=== PATIENT | female | born 2000 | race Caucasian/White ===

== ENCOUNTER 2022-06-05 12:31 | Inpatient (IN) ==
--- NOTE | 2022-06-05 13:08 | XRay Report ---
XR chest 1V portable HISTORY: 22 years-old Female Chest pain, nonspecific acute chest pain COMPARISON: None TECHNIQUE: AP view the chest FINDINGS: Cardiomediastinal and hilar silhouettes are within normal limits. No pneumothorax, pleural effusion, airspace consolidation or pulmonary edema. Bilateral nipple jewelry. Bones appear normal. IMPRESSION: Normal exam. ACT 112: Negative or not required by law. The above report was generated using voice recognition software. It may contain grammatical, syntax o r spelling errors. Electronically signed by: Venkata Crane M.D. 06/05/2022 1:07 PM
--- NOTE | 2022-06-05 13:15 | Emergency Department Note ---
History of Present Illness General Chief complaint: Chest Pain Stated complaint: SEVER PAIN LEFT ARM & BREAST Time Seen by Provider: 06/05/22 13:00 History of Present Illness Provider complaint: Chest and breast pain Onset (ago): hour(s) (2.5) Location: chest and left Radiation: back Maximum Pain Intensity: 8 Current Pain Intensity: 8 Quality: + stabbing, + aching, + sharp and + dull Relieved By: + immobilization Exacerbated By: + movement Associated symptoms: + chest pain and + shortness of breath 22-year-old female presents emergency department with mother for left chest and breast pain. Patient states she woke up at 10:30 in the morning and heard she was having pain in her left chest. She states her pain was radiating into her left breast tissue and then into her back. She reports her pain is worse with inspiration and movement. She reports some mild shortness of breath. Patient is on control. No trauma. Home Medications Medication Instructions Recorded Confirmed Type mirtazapine 15 mg tablet 15 mg PO HS 06/05/22 06/05/22 History norethindrone 1.5 mg-ethinyl 1 tab PO DAILY 06/05/22 06/05/22 History estradiol 30 mcg(21)/iron 75 mg(7) tablet (Blisovi Fe 1.5/30 (28)) trazodone 50 mg tablet 50 mg PO HS 06/05/22 06/05/22 History Allergies Allergy/AdvReac Type Severity Reaction Status Date / Time adhesive Allergy Intermediate REDDENED/HI Verified 06/05/22 16:33 VES amoxicillin Allergy Intermediate Rash Verified 06/05/22 16:29 cefixime [From Suprax] Allergy Intermediate Hives Verified 06/05/22 14:07 clavulanic acid Allergy Intermediate Rash Verified 06/05/22 16:29 [From Augmentin] cefaclor [From Ceclor] Allergy Mild Hives Verified 06/05/22 16:25 cephalexin [From Keflex] Allergy Mild Hives Verified 06/05/22 16:26 Sulfa (Sulfonamide Allergy Mild Rash Verified 06/05/22 16:33 Antibiotics) Past Med/Surg History Medical History History of chicken pox Surgical History S/P tonsillectomy Family History Other Anemia Dyslipidemia Endometriosis Hypertension Denies family history of Ovarian cancer Breast cancer Colorectal cancer Uterine cancer Social History Smoking Status: Never smoker Hx Alcohol Use: No Hx Substance Use: No Preferred Language: Greenlandic Communication Ability: Effective Feels Safe at Home: Yes Physical Exam Vital Signs Vital Signs - 24 hr 06/05/22 12:37 06/05/22 13:34 06/05/22 15:46 Temperature 36.8 C 37.9 C H Temperature Source Temporal Artery Scan Oral Pulse Rate 117 H Pulse Rate [Finger] 109 H Respiratory Rate 18 16 Respiratory Effort / Characteristics Non-Labored Spontaneous Respiratory Depth Normal Blood Pressure 131/85 Blood Pressure [Right Arm] 117/75 Blood Pressure Mean 100 Blood Pressure Mean [Right Arm] 89 Blood Pressure Position Sitting Blood Pressure Position [Right Arm] Semi-fowlers Pulse Oximetry 99 97 Oxygen Delivery Method Room Air Room Air Room Air Sepsis Recent Fever Within 48 Hours No Sepsis New/Unexplained Change in Mental Status No Sepsis Action Taken by Nursing No Action Required Physical Exam GENERAL: She is oriented to person, place, and time. She appears well-developed and well-nourished. HENT: Exam performed. -Head: Normocephalic and atraumatic. -Right Ear: External ear normal. No mastoid erythema -Left Ear: External ear normal. No mastoid erythema EYES: Conjunctivae and EOM are normal.Right eye exhibits no discharge. Left eye exhibits no discharge. No scleral icterus. NECK: Normal range of motion. Neck supple. No JVD present. No tracheal deviation and normal range of motion present. CV: Tachycardic rate, regular rhythm, normal heart sounds and intact distal pulses. There is no peripheral edema. Palpable radial pulses bue. PULM/CHEST: Effort normal and breath sounds normal. No respiratory distress. No stridor. She has no wheezes. She has no rales. -Chest Wall: She exhibits tenderness to palpation of the left chest. No crepitus bilaterally. BREAST: Breast exam conducted with female nursing classer Richard at bedside. There is no erythema over the breast. There is a left nipple ring which the patient states has been present for the last 3 years. There is no blood or discharge coming from the left nipple. No palpable masses in the left breast. No fluctuant areas. Breast tissue is tender to touch. ABD: The abdomen is soft.She has no distension.There is no tenderness. There is no rebound, no guarding. MUSC/SKEL: Normal range of motion. There is tenderness to palpation of the left thoracic paraspinal muscles and trapezial muscles also. LYMPH: No cervical adenopathy. NEURO: She is alert and oriented to person, place, and time. She has normal strength. No cranial nerve deficit or sensory deficit. Coordination and gait normal. GCS eye subscore is 4. GCS verbal subscore is 5. GCS motor subscore is 6. Cerebellar tests wnl. SKIN: Skin is warm and dry. She is not diaphoretic. PSYCH: She has a normal mood and affect. Behavior is normal. Judgment and thought content normal. Course Course 1300: The patient was evaluated in room A3. A complete history and physical exam was performed Cardiac monitoring: An order was placed for continuous cardiac monitoring. The monitor shows a rate of 100 with sinus rhythm interpreted by me 1633: Patient's temperature diane to 37.9 orally. Patient remains tachycardic. Labs show leukocytosis of 20. Chest x-ray and D-dimer as well as troponin negative. Ultrasound of the breast shows a 2.1 cm x 1.3 cm x 1.4 cm nonvascular fluid collection at the 7 o'clock position concerning for an abscess. General surgery evaluate the patient. Sivan Shine came down to evaluate the patient and states they will admit to Dr. Andreia Wells. Patient will be made n.p.o. IV Tylenol IV fluids ordered for the patient. Discussed potential antibiotic choices with general surgery and they deferred to us. Discussed with pharmacy who did interview the patient and mother and stated the patient had reactions rash reactions with no airway problems in the past as a child due to recurrent strep infections. There is concern against potential anaerobic, staph, MSSA infection of the abscess so we will treat the patient with Rocephin IV, Vanco IV, and Flagyl IV. Medical Decision Making Laboratory Data Attestation: I reviewed the patient's lab results. 06/05/22 12:45 06/05/22 12:45 Lab Results 06/05/22 06/05/22 06/05/22 Range/Units 12:45 12:45 12:45 WBC 20.22 H (4.8-10.8) K/ul RBC 5.02 (4.20-5.40) M/uL Hgb 14.4 (12.0-16.0) g/dl Hct 42.5 (37.0-47.0) % MCV 84.7 (80.0-100.0) fL MCH 28.7 (25.0-34.0) pg MCHC 33.9 (32.0-36.0) g/dL RDW Std Deviation 37.8 (36.4-46.3) fL RDW Coeff of Shanice 12.5 (11.5-14.5) % Plt Count 352 (130-400) K/uL MPV 10.0 (9.4-12.4) fL Immature Gran % (Auto) 0.4 % Neut % (Auto) 89.8 % Lymph % (Auto) 5.0 % [place] % (Auto) 4.3 % Eos % (Auto) 0.2 % Baso % (Auto) 0.3 % Neut # (Auto) 18.13 H (1.40-6.50) K/uL Lymph # (Auto) 1.01 L (1.2-3.4) K/uL [place] # (Auto) 0.87 H (0.11-0.59) K/uL Eos # (Auto) 0.05 (0-0.50) K/uL Baso # (Auto) 0.07 (0-0.2) K/uL Immature Gran # (Auto) 0.09 (0.01-0.20) K/uL PT 10.5 (9.0-12.0) Seconds INR 1.0 (0.9-1.1) APTT 23.4 (21.0-31.0) Seconds PTT Ratio 0.9 D-Dimer 330 (0-500) ug/L FEU Sodium 134 L (136-145) mmol/L Potassium 4.0 (3.5-5.1) mmol/L Chloride 100 (98-107) mmol/L Carbon Dioxide 25 (21-32) mmol/L Anion Gap 9 (3-11) BUN 7 (6-23) mg/dl Creatinine 0.86 (0.6-1.2) mg/dl Est Cr Clr Drug Dosing 101.5 ml/min Est GFR ( Amer) 112.7 ml/min Est GFR (Non-Af Amer) 97.3 ml/min BUN/Creatinine Ratio 8.1 L (10-20) Glucose 99 (70-99(Fasting)) mg/dl Calcium 9.4 (8.6-10.3) mg/dl Total Bilirubin 0.6 (0.2-1.0) mg/dl AST 13 (13-39) U/L ALT 10 (7-52) U/L Alkaline Phosphatase 91 (34-104) U/L Troponin I High Sens 4.4 (0-14) pg/ml Total Protein 7.5 (6.0-8.3) gm/dl Albumin 4.3 (3.4-5.0) gm/dl Globulin 3.2 (2.5-4.0) gm/dl Albumin/Globulin Ratio 1.3 (0.9-2) Imaging Data Attestation: I personally reviewed and interpreted this imaging study as follows: My Impression: Chest x-ray negative. Airway clear. No pneumothorax. No consolidation. No cardiomegaly or cephalization.. No free air under the diaphragm. No fractures of the skeletal structures. Radiologist's Impression: Chest X-Ray 06/05/22 12:41 XR chest 1V portable HISTORY: 22 years-old Female Chest pain, nonspecific acute chest pain COMPARISON: None TECHNIQUE: AP view the chest FINDINGS: Cardiomediastinal and hilar silhouettes are within normal limits. No pneumothorax, pleural effusion, airspace consolidation or pulmonary edema. Bilateral nipple jewelry. Bones appear normal. IMPRESSION: Normal exam. ACT 112: Negative or not required by law. The above report was generated using voice recognition software. It may contain grammatical, syntax or spelling errors. Electronically signed by: Venkata Crane M.D. 06/05/2022 1:07 PM Breast Ultrasound 06/05/22 14:20 ULTRASOUND OF THE LEFT BREAST CLINICAL HISTORY: Left breast pain. Clinical concern for abscess. COMPARISON STUDY: No priors. FINDINGS: Real-time grayscale and color flow sonography of the left breast is performed at the indicated site of interest. At the 7 o'clock position, there is a complex fluid collection which measures 1.4 x 1.3 x 2.1 cm. This is located 6 mm deep to the dermal surface, and there is peripheral hyperemia on color imaging. The appearance is typical for a small abscess. IMPRESSION: 1. There is a 2.1 cm complex nonvascular fluid collection at the 7 o'clock position at the site of interest. The appearance favors a small abscess. Clinical correlation will be required. 2. Note that this does not constitute a cancer screening examination. Dictated: 06/05/2022 3:06 PM Transcribed: 06/05/2022 3:16 PM Ruby [id number] ELIZABETH_Janes [id number] Electronically signed by: Bryant Quintero M.D. 06/05/2022 3:30 PM ECG Data Additional Comments: EKG #1 at 1244: Sinus tachycardia with rate of 122. NC 98 QRS [address] elevation or ST depression. EKG #2 at 1308: Sinus rhythm with a rate of 100. NC 118 QRS [address] elevation or ST depression. [facility] Narrative 1300: The patient was evaluated in room A3. A complete history and physical exam was performed Cardiac monitoring: An order was placed for continuous cardiac monitoring. The monitor shows a rate of 100 with sinus rhythm interpreted by tn 1633: Patient's temperature diane to 37.9 orally. Patient remains tachycardic. Labs show leukocytosis of 20. Chest x-ray and D-dimer as well as troponin negative. Ultrasound of the breast shows a 2.1 cm x 1.3 cm x 1.4 cm nonvascular fluid collection at the 7 o'clock position concerning for an abscess. General surgery evaluate the patient. Sivan Shine came down to evaluate the patient and states they will admit to Dr. Andreia Wells. Patient will be made n.p.o. IV Tylenol IV fluids ordered for the patient. Discussed potential antibiotic choices with general surgery and they deferred to us. Discussed with pharmacy who did interview the patient and mother and stated the patient had reactions rash reactions with no airway problems in the past as a child due to recurrent strep infections. There is concern against potential anaerobic, staph, MSSA infection of the abscess so we will treat the patient with Rocephin IV, Vanco IV, and Flagyl IV. Impression & Plan Abscess of breast Discharge Plan Visit Data Chief Complaint: Chest Pain Stated Complaint: SEVER PAIN LEFT ARM & BREAST ED Provider: Jaswant Fields Discharge Problem: Abscess of breast Patient Disposition: Admitted As Inpatient Forms Stand Alone Forms: [facility] Prescriptions Prescriptions: No Action norethindrone-e.estradiol-iron [Blisovi Fe 1.5/30 (28)] 1.5 mg-30 mcg (21)/75 mg (7) tablet 1 tab PO DAILY trazodone 50 mg tablet 50 mg PO HS mirtazapine 15 mg tablet 15 mg PO HS Referrals Referrals: Gumaro Azar PA-C [Primary Care Provider] -
[2022-06-05 13:39] LABS: D Dimer 330 ug/L FEU (0-500); Partial Thromboplastin Ratio 0.9; Partial Thromboplastin Time 23.4 Seconds (21.0-31.0); Prothrombin Time 10.5 Seconds (9.0-12.0)
[2022-06-05 13:40] LABS: Basophils # (auto) 0.07 K/uL (0-0.2); Basophils % (auto) 0.3 %; Eosinophils # (auto) 0.05 K/uL (0-0.50); Eosinophils % (auto) 0.2 %; Hematocrit (blood only) 42.5 % (37.0-47.0); Hemoglobin 14.4 g/dl (12.0-16.0); Immature Granulocytes # (auto) 0.09 K/uL (0.01-0.20); Immature Granulocytes % (auto) 0.4 %; Lymphocytes # (auto) 1.01 K/uL (1.2-3.4); Mean Corpuscular Hemoglobin 28.7 pg (25.0-34.0); Mean Corpuscular Hgb Conc 33.9 g/dL (32.0-36.0); Mean Corpuscular Volume 84.7 fL (80.0-100.0); Monocytes # (auto) 0.87 K/uL (0.11-0.59); Monocytes % (auto) 4.3 %; Neutrophils # (auto) 18.13 K/uL (1.40-6.50); Neutrophils % (auto) 89.8 %; Platelet Count 352 K/uL (130-400); RDW Coefficient of Variation 12.5 % (11.5-14.5); RDW Standard Deviation 37.8 fL (36.4-46.3); Red Blood Count 5.02 M/uL (4.20-5.40); White Blood Count 20.22 K/ul (4.8-10.8)
[2022-06-05 13:45] LABS: Albumin Level 4.3 gm/dl (3.4-5.0); Bilirubin,Total 0.6 mg/dl (0.2-1.0); Calcium 9.4 mg/dl (8.6-10.3)
[2022-06-05 13:51] LABS: Albumin Globulin Ratio 1.3 (0.9-2); BUN Creatinine Ratio 8.1 (10-20); Creatinine Clr Calc Pharmacy 101.5 ml/min; Est GFR (African American) 112.7 ml/min; Est GFR (Non-African American) 97.3 ml/min; Globulin 3.2 gm/dl (2.5-4.0); Total Protein 7.5 gm/dl (6.0-8.3)
[2022-06-05 13:56] LABS: Troponin I High Sensitivity 4.4 pg/ml (0-14)
--- NOTE | 2022-06-05 15:32 | Ultrasound Report ---
ULTRASOUND OF THE LEFT BREAST CLINICAL HISTORY: Left breast pain. Clinical concern for abscess. COMPARISON STUDY: No priors. FINDINGS: Real-time grayscale and color flow sonography of the left breast is performed at the [facility] site of interest. At the 7 o'clock position, there is a complex fluid collection which measures 1 .4 x 1.3 x 2.1 cm. This is located 6 mm deep to the dermal surface, and there is peripheral hyperemia on color imaging. The appearance is typical for a small abscess. IMPRESSION: 1. There is a 2.1 cm complex nonvascular fluid collection at the 7 o'clock position at the site of in [facility]. The appearance favors a small abscess. Clinical correlation will be required. 2. Note that this does not constitute a cancer screening examination. Dictated: 06/05/2022 3:06 PM Transcribed: 06/05/2022 3:16 PM Ruby [id number] ELIZABETH_Janes [id number] Electronically signed by: Bryant Quintero M.D. 06/05/2022 3:30 PM
[2022-06-05] MEDS ORDERED: SODIUM CHLORIDE 0.9% 1000ML 2,000 ML IV ONE (16:18)
[2022-06-05] MEDS ORDERED: cefTRIAXone SODIUM 2,000 MG/70 ML BAG IV STA (16:31)
[2022-06-05] MEDS ORDERED: VANCOMYCIN CONSULT ACTIVE PRN (16:31)
[2022-06-05] MEDS ORDERED: VANCOMYCIN HCL 1,500 MG in SODIUM CHLORIDE 0.9% 500 ML IV ONE (16:31)
[2022-06-05] MEDS ORDERED: metroNIDAZOLE 500 MG/100 ML BAG IV STA (16:31)
--- NOTE | 2022-06-05 16:43 | History & Physical Report ---
I discussed this case with the surgical PA. Plan was to have the patient admitted to start IV antibiotics Follow up with IR in the am to see if they would be amenable to US guided needle aspiration of this collection to obtain cultures Date of Service June 05, 2022 Assessment & Plan (1) Abscess of breast: Plan: This is a 22yF who presents to the [facility] ED with complaints of left breast pain that started this morning. She noticed her L breast was feeling tender and warm to the touch, denies any drainage. In the ER she underwent an US of the breast that revealed a 2.1 cm complex nonvascular fluid collection at the 7 o'clock position at the site of interest. The appearance favors a small abscess. She denies any history of breast feeding. Does have her nipples pierced as of 3 years ago. In the ER she is found to be slightly tachycardic to low 100s and most recent temperature was 37.9 with stable blood pressure. On examination patient is comfortable appearing and in no distress. She has a nipple piercing in place in the L breast without evidence of drainage. Circumferentially the skin surrounding the areola has areas of patchy erythema. In the 7 o'clock region there is a small mobile palpable mass likely consistent with what they are finding on US. She has tenderness to palpation in this region. Based on patient's vitals, elevation in WBC, and exam patient would benefit from admission to start a course of IV abx. Discussed with IR who does not perform any breast work at this time. May benefit from aspiration at the breast center under their imaging guidance pending progress on abx. Will follow closely. History of Present Illness Primary Care Provider: Gumaro Azar PA-C This is a 22yF who presents to the [facility] ED with complaints of left breast pain. She states the pain started around 10am today and it radiates into her back. She noticed her L breast was feeling tender and warm to the touch. She reports discomfort in her underarm region with certain movements. She denies any fevers/chills, nausea/vomiting, CP/SOB. In the ER she underwent an US of the breast that revealed a 2.1 cm complex nonvascular fluid collection at the 7 o'clock position at the site of interest. The appearance favors a small abscess. She denies any history of breast feeding. Does have her nipples pierced as of 3 years ago- no known issues with them. Denies any drainage from the breast/nipple. Never had pain or issue like this before. Offers no other complaints outside of pain of the breast. Allergies Allergy/AdvReac Type Severity Reaction Status Date / Time adhesive Allergy Intermediate REDDENED/HI Verified 06/05/22 16:33 VES amoxicillin Allergy Intermediate Rash Verified 06/05/22 16:29 cefixime [From Suprax] Allergy Intermediate Hives Verified 06/05/22 14:07 clavulanic acid Allergy Intermediate Rash Verified 06/05/22 16:29 [From Augmentin] cefaclor [From Ceclor] Allergy Mild Hives Verified 06/05/22 16:25 cephalexin [From Keflex] Allergy Mild Hives Verified 06/05/22 16:26 Sulfa (Sulfonamide Allergy Mild Rash Verified 06/05/22 16:33 Antibiotics) Home Medications Medication Instructions Recorded Confirmed Type mirtazapine 15 mg tablet 15 mg PO HS 06/05/22 06/05/22 History norethindrone 1.5 mg-ethinyl 1 tab PO DAILY 06/05/22 06/05/22 History estradiol 30 mcg(21)/iron 75 mg(7) tablet (Blisovi Fe 1.5/30 (28)) trazodone 50 mg tablet 50 mg PO HS 06/05/22 06/05/22 History Past Med/Surg History Medical History History of chicken pox Surgical History S/P tonsillectomy Family History Other Anemia Dyslipidemia Endometriosis Hypertension Denies family history of Ovarian cancer Breast cancer Colorectal cancer Uterine cancer Social History Smoking Status: Never smoker Hx Alcohol Use: No Hx Substance Use: No Preferred Language: Syriac Communication Ability: Effective Video Photographer Required: No Beliefs That Will Affect Care: None Feels Safe at Home: Yes Review of Systems Constitutional: no fever and no chills Respiratory: no dyspnea Cardiovascular: no chest pain Gastrointestinal: no abdominal pain, no nausea and no vomiting Integumentary: pain of left breast with some surrounding redness, warm and tender to touch Physical Exam Physical Exam: awake/alert, no distress Constitutional: well developed and well nourished; no acute distress Respiratory: normal respiratory effort Cardiovascular: Rate/Rhythm: regular rhythm and + tachycardic Chest (Breasts): Additional Comments: L breast with nipple piercing in place, no surrounding drainage. circumferentially the skin outside of the areola has areas of patchy erythema. In the 7 oclock region there is a small mobile palpable mass likely consistent with what they are finding on US. She has tenderness to palpation in this region Results & Data Results & Data Vital Signs (Past 12 Hours) Vital Signs Temp Pulse Pulse Resp BP BP Pulse Ox 06/05/22 15:46 37.9 C H 109 H 16 117/75 97 06/05/22 13:34 06/05/22 12:37 36.8 C 117 H 18 131/85 99 O2 Del Method 06/05/22 15:46 Room Air 06/05/22 13:34 Room Air 06/05/22 12:37 Room Air Diagnostic Findings ULTRASOUND OF THE LEFT BREAST CLINICAL HISTORY: Left breast pain. Clinical concern for abscess. COMPARISON STUDY: No priors. FINDINGS: Real-time grayscale and color flow sonography of the left breast is performed at the indicated site of interest. At the 7 o'clock position, there is a complex fluid collection which measures 1.4 x 1.3 x 2.1 cm. This is located 6 mm deep to the dermal surface, and there is peripheral hyperemia on color imaging. The appearance is typical for a small abscess. IMPRESSION: 1. There is a 2.1 cm complex nonvascular fluid collection at the 7 o'clock position at the site of interest. The appearance favors a small abscess. Clinical correlation will be required. 2. Note that this does not constitute a cancer screening examination. Dictated: 06/05/2022 3:06 PM Transcribed: 06/05/2022 3:16 PM Ruby [id number] Lisa [id number] Electronically signed by: Bryant Quintero M.D. 06/05/2022 3:30 PM PG Care Time/CCT Total # of Minutes Spent Total Time Spent with Patient: Total time spent is greater than 50% in coordination of care (as documented) at patient's floor/unit and/or counseling patient: Coding Level of Care Code 35348 INT INP/OBS CARE MIN Diagnoses Abscess of breast N61.1
[2022-06-05] MEDS ORDERED: ACETAMINOPHEN 1,000 MG/100 ML VIAL IV STA (18:27)
[2022-06-05] MEDS ORDERED: ONDANSETRON INJ 2 MG/ML 2 ML VIAL IV PRN (19:30)
[2022-06-05] MEDS ORDERED: IBUPROFEN 200 MG TAB PO PRN (19:30)
[2022-06-05] MEDS ORDERED: ACETAMINOPHEN 325 MG TAB PO PRN (19:30)
--- NOTE | 2022-06-05 19:57 | Pharmacy Report ---
Pharmacy PK ABX Note - Date of Service June 05, 2022 - Assessment and Plan Assessment 22 year old F receiving ceftriaxone/metronidazole/vancomycin for treatment of breast abscess. Leukocytosis (20). Afebrile. Ultrasound suggesting small abscess. No drainage. No cultures at present time. Plan for admission and treatment with IV antibiotics. No plan for drainage at this time. Patient does have multiple allergies to early gen cephalosporins and cefixime (3rd gen). Tolerated first dose of ceftriaxone in the ED- monitor. Plan Vancomycin * Loading dose: 1500 mg IV x 1 * Maintenance dose: 1000 mg IV every 12 hours * Regimen is predicted to achieve target AUC/CHUNG of 400-600 mg/L.hr * Random level to be ordered if continued >48 hours Pharmacy will continue to follow and will adjust dose/frequency as necessary. Thank you. Pharmacy has transitioned to AUC monitoring for vancomycin. AUC/CHUNG is the preferred PK/PD target and is associated with decreased risk of nephrotoxicity compared to traditional trough targets.
[2022-06-05] MEDS: traZODone HCL 50 MG TAB PO SCH (22:40)
[2022-06-05] MEDS: MIRTAZAPINE TAB 15 MG TAB PO SCH (22:40)
[2022-06-05] MEDS: SODIUM CHLORIDE 0.9% 1000ML 1,000 ML IV SCH (22:40)
[2022-06-06] MEDS: VANCOMYCIN HCL 1,000 MG in SODIUM CHLORIDE 0.9% 250 ML IV SCH ×2 (01:56→13:19)
[2022-06-06] MEDS: metroNIDAZOLE 500 MG/100 ML BAG IV SCH ×3 (03:28→19:03)
[2022-06-06 07:02] LABS: Basophils # (auto) 0.04 K/uL (0-0.2); Basophils % (auto) 0.3 %; Eosinophils # (auto) 0.07 K/uL (0-0.50); Eosinophils % (auto) 0.5 %; Hematocrit (blood only) 37.6 % (37.0-47.0); Hemoglobin 12.7 g/dl (12.0-16.0); Immature Granulocytes # (auto) 0.08 K/uL (0.01-0.20); Immature Granulocytes % (auto) 0.5 %; Lymphocytes # (auto) 1.35 K/uL (1.2-3.4); Mean Corpuscular Hemoglobin 28.6 pg (25.0-34.0); Mean Corpuscular Hgb Conc 33.8 g/dL (32.0-36.0); Mean Corpuscular Volume 84.7 fL (80.0-100.0); Mean Platelet Volume 9.7 fL (9.4-12.4); Monocytes # (auto) 0.78 K/uL (0.11-0.59); Monocytes % (auto) 5.2 %; Neutrophils # (auto) 12.61 K/uL (1.40-6.50); Neutrophils % (auto) 84.5 %; Platelet Count 267 K/uL (130-400); RDW Coefficient of Variation 12.6 % (11.5-14.5); RDW Standard Deviation 38.6 fL (36.4-46.3); Red Blood Count 4.44 M/uL (4.20-5.40); White Blood Count 14.93 K/ul (4.8-10.8)
[2022-06-06 07:19] LABS: BUN Creatinine Ratio 8.9 (10-20); Calcium 8.4 mg/dl (8.6-10.3); Creatinine Clr Calc Pharmacy 110.5 ml/min; Est GFR (African American) 124.9 ml/min; Est GFR (Non-African American) 107.8 ml/min; Potassium 3.6 mmol/L (3.5-5.1)
[2022-06-06] MEDS: SODIUM CHLORIDE 0.9% 1000ML 1,000 ML IV SCH ×2 (08:04→18:13)
--- NOTE | 2022-06-06 14:14 | Surgery Progress Note ---
Date of Service June 06, 2022 Assessment & Plan (1) Abscess of breast: Plan: Patient was febrile this am. Leukocytosis is improved on current antibiotic regimen. Consider blood cultures IR is not currently available in patient for image guided breast biopsies or needle access. If she continues to respond to antibiotics, will discharge her once she has been afebrile for 24 hours and resolved leukocytosis to have a diagnostic US done of the left breast at the breast center along with aspiration or CNB and follow up with me as an outpatient for further management. Follow up am labs Will follow up in the am Admission and Anticipated Discharge Date Admission Date: June 05, 2022 Subjective The patient was seen today and examined. She says the left breast pain is improved but is still present. She denies nausea. Physical Exam Constitutional: well nourished; no acute distress and not ill appearing Respiratory: normal respiratory effort; no respiratory distress, no labored breathing and does not use accessory muscles Chest (Breasts): Breast: normal inspection of axillae; no skin thickening Additional Comments: There is a small area of white fluid newly present just under the epidermis at the left areola, medial aspect of the left nipple and nipple ring insertion site. There is some mile erythema at the lateral aspect of the left beast in a subtle streaking pattern. There is a palpable nodule at the lower aspect of the left breast. The left breast is TTP with fullness. There is no skin thickening. Results & Data Vital Signs (Past 12 Hours) Vital Signs Temp Pulse Resp BP Pulse Ox O2 Del Method 06/06/22 07:22 37.9 C H 101 H 16 127/73 97 Room Air PG Care Time/CCT Total # of Minutes Spent Total Time Spent with Patient: Total time spent is greater than 50% in coordination of care (as documented) at patient's floor/unit and/or counseling patient: Coding Level of Care Code 67006 SUB INP/OBS CARE 2/35MIN Diagnoses Abscess of breast N61.1
[2022-06-06] MEDS ORDERED: cefTRIAXone SODIUM 2,000 MG in DEXTROSE 5% 50 ML IV SCH (17:00)
[2022-06-06] MEDS: traZODone HCL 50 MG TAB PO SCH (20:11)
[2022-06-06] MEDS: MIRTAZAPINE TAB 15 MG TAB PO SCH (20:12)
--- NOTE | 2022-06-06 21:41 | Electrocardiogram Report ---
Test Reason : Blood Pressure : / mmHG Vent. Rate : 122 BPM Atrial Rate : 122 BPM P-R Int : 098 ms QRS Dur : 072 ms QT Int : 298 ms P-R-T Axes : 073 059 020 degrees QTc Int : 424 ms Poor data quality, interpretation may be adversely affected Sinus tachycardia with short AR Cannot rule out Anterior infarct , age undetermined Nonspecific T wave abnormality Abnormal ECG No previous ECGs available Confirmed by Medhat Bloom ([id number]) on 06/06/2022 9:41:24 PM Referred By: REFERRED SELF Confirmed By:Medhat Bloom
--- NOTE | 2022-06-06 21:42 | Electrocardiogram Report ---
Test Reason : Blood Pressure : / mmHG Vent. Rate : 100 BPM Atrial Rate : 100 BPM P-R Int : 118 ms QRS Dur : 072 ms QT Int : 326 ms P-R-T Axes : 021 050 015 degrees QTc Int : 420 ms Normal sinus rhythm Normal ECG When compared with ECG of 05-JUN-2022 12:44, No significant change was found Confirmed by Medhat Bloom ([id number]) on 06/06/2022 9:41:51 PM Referred By: REFERRED SELF Confirmed By:Medhat Bloom
[2022-06-07] MEDS: VANCOMYCIN HCL 1,000 MG in SODIUM CHLORIDE 0.9% 250 ML IV SCH (00:38)
[2022-06-07] MEDS: metroNIDAZOLE 500 MG/100 ML BAG IV SCH ×2 (03:17→09:20)
[2022-06-07] MEDS: SODIUM CHLORIDE 0.9% 1000ML 1,000 ML IV SCH (05:06)
[2022-06-07 07:57] LABS: Creatinine Clr Calc Pharmacy 140.8 ml/min; Est GFR (African American) > 150.0 ml/min; Est GFR (Non-African American) 129.8 ml/min
[2022-06-07 08:07] LABS: Basophils # (auto) 0.07 K/uL (0-0.2); Basophils % (auto) 0.7 %; Eosinophils # (auto) 0.28 K/uL (0-0.50); Eosinophils % (auto) 2.6 %; Hemoglobin 13.5 g/dl (12.0-16.0); Immature Granulocytes # (auto) 0.04 K/uL (0.01-0.20); Immature Granulocytes % (auto) 0.4 %; Lymphocytes # (auto) 1.45 K/uL (1.2-3.4); Lymphocytes % (auto) 13.6 %; Mean Corpuscular Hemoglobin 28.6 pg (25.0-34.0); Mean Corpuscular Hgb Conc 32.9 g/dL (32.0-36.0); Mean Corpuscular Volume 86.9 fL (80.0-100.0); Mean Platelet Volume 10.8 fL (9.4-12.4); Monocytes # (auto) 0.77 K/uL (0.11-0.59); Monocytes % (auto) 7.2 %; Neutrophils # (auto) 8.05 K/uL (1.40-6.50); Neutrophils % (auto) 75.5 %; Platelet Count 180 K/uL (130-400); RDW Coefficient of Variation 12.5 % (11.5-14.5); RDW Standard Deviation 39.8 fL (36.4-46.3); Red Blood Count 4.72 M/uL (4.20-5.40); White Blood Count 10.66 K/ul (4.8-10.8)
--- NOTE | 2022-06-07 08:38 | Surgery Progress Note ---
Date of Service June 07, 2022 Assessment & Plan (1) Abscess of breast: Plan: Patient here with 2cm L breast abscess WBC downtrended to normal 10.6. Vitals are stable and she is afebrile Erythema of breast appears to be fading. Still without drainage. less tendern ess to palpation Consideration to converting to a course of PO abx with f/u in breast care center for diagnostic imaging with aspiration and/or core needle biopsy if indicated by imaging. Follow up with Dr. Mueller in the office after imaging and tissue sampling is done at the breast center. Possible home later today pending progress Admission and Anticipated Discharge Date Admission Date: June 05, 2022 Supervising Physician Co-Signing Physician Notes I have seen this patient with the surgical PA. I agree with the plan. Convert to oral antibiotics, discharge home. Subjective Patient is feeling well. Says L breast pain is much improved. No fever in 24 hours. Physical Exam Physical Exam: awake/alert, no distress Chest (Breasts): Additional Comments: L breast with fading erythema. No drainage noted. Less tenderness to palpation. mobile mass noted in 7oclock region Results & Data Vital Signs (Past 12 Hours) Vital Signs Temp Pulse Resp BP Pulse Ox O2 Del Method 06/07/22 07:53 37 C 82 16 113/71 97 Room Air 06/06/22 23:30 37 C 85 99/54 L 97 Room Air PG Care Time/CCT Total # of Minutes Spent Total Time Spent with Patient: Total time spent is greater than 50% in coordination of care (as documented) at patient's floor/unit and/or counseling patient: Coding Level of Care Code 96255 SUB INP/OBS CARE 1/25MIN History Problem Focused Exam Problem Focused Medical Decision Making Straight Forward Diagnoses Abscess of breast N61.1
--- NOTE | 2022-06-07 08:52 | Pharmacy Report ---
Pharmacy PK ABX Note - Date of Service June 07, 2022 - Assessment and Plan Assessment 22 year old F receiving ceftriaxone/metronidazole/vancomycin for treatment of breast abscess. Ultrasound suggesting small abscess. No cultures at present time. Plan for admission and treatment with IV antibiotics. 06/07: Per notes, area improving - considering monitoring today and possibly discharge later today. Leukocytosis resolved, afebrile x 24 hours Plan Vancomycin * Random level came back at ~7 mcg/ml - this current vancomycin dosing is associated with an AUC/CHUNG <400 therefore will increase dosing of vancomycin * Will increase to vancomycin 1250 mg iv q 8 hrs - this dosing is associated with a trough level of ~11 mcg/ml, an AUC/CHUNG of 471 mg/L.hr and may be associated with a 7% risk of toxicity * Will consider rechecking level tomorrow before the 1000 dose to ensure stable Pharmacy will continue to follow and will adjust dose/frequency as necessary. Thank you. Pharmacy has transitioned to AUC monitoring for vancomycin. AUC/CHUNG is the preferred PK/PD target and is associated with decreased risk of nephrotoxicity compared to traditional trough targets.
[2022-06-07] MEDS ORDERED: VANCOMYCIN HCL 1,250 MG in SODIUM CHLORIDE 0.9% 250 ML IV SCH (10:00)
[2022-06-08] MEDS ORDERED: VANCOMYCIN LEVEL ONE (09:30)
== END 2022-06-07 16:12 | disposition home or self-care (01) | DRG 601 ==
LOC: ED 12:31 → EDINP 17:26 → 3W 21:16